=== PATIENT | female | born 1985 | race Two or more races ===

== ENCOUNTER 2020-07-01 16:50 | Inpatient (IN) | payer SELFPAY ==
[~2020-07-01] VITALS: Ht 162.6 cm; Wt 66.0 kg
[2020-07-01 18:57] LABS: BASOPHILS % 0.6 % (0.0-2.0); EOSINOPHILS % 0.7 % (0.0-5.0); HEMATOCRIT. 22.9 % (36.0-48.0); HEMOGLOBIN. 8.1 g/dL (12.0-16.0); LYMPHOCYTES % 22.9 % (20.0-50.0); MEAN CORPUSCULAR HEMOGLOBIN 29.7 pg (28.0-32.0); MEAN CORPUSCULAR VOLUME 84.1 fL (81.0-99.0); MEAN PLATELET VOLUME 8.9 fl (7.4-10.4); MONOCYTES % 4.9 % (2.0-8.0); NEUTROPHILS % 70.9 % (40.0-76.0); PLATELET 249 x1000/uL (130-400); RED BLOOD CELL COUNT 2.72 mill/uL (4.2-5.4); RED CELL DISTRIBUTION WIDTH 19.4 % (11.6-14.6)
[2020-07-01 19:13] LABS: CHLORIDE 111 mEq/L (98-107)
[2020-07-01 19:17] LABS: ETHANOL BLOOD < 10 mg/dL
[2020-07-01 19:39] LABS: HCG SCREEN NEGATIVE
[2020-07-01] MEDS ORDERED: LORAZEPAM 2MG/ML CPJ IM ONE (20:45)
[2020-07-01] MEDS ORDERED: HALOPERIDOL LACTATE 5MG/ML VIAL IM ONE (20:45)
[2020-07-01 21:57] LABS: CLARITY URINE CLEAR (CLEAR); COLOR URINE DARK YELLOW (YELLOW); KETONES URINE NEGATIVE (NEGATIVE); LEUKOCYTE ESTERASE URINE 1+ (NEGATIVE); NITRITE URINE NEGATIVE (NEGATIVE); OCCULT BLOOD URINE NEGATIVE (NEGATIVE); PH URINE 7.5 (4.5-8.0); PROTEIN URINE NEGATIVE (NEGATIVE); SPECIFIC GRAVITY URINE 1.023 (1.005-1.030); UROBILINOGEN URINE >8.0 E.U./dL (0.2-1.0)
[2020-07-01] MEDS ORDERED: NITROFURANTOIN 100MG M/M CAPSULE PO STA (22:20)
[2020-07-01 22:24] LABS: *BARBITURATES SCREEN URINE NEGATIVE (NEGATIVE)
[2020-07-01 22:25] LABS: *BENZODIAZEPINES SCREEN URINE NEGATIVE (NEGATIVE); *COCAINE SCREEN URINE NEGATIVE (NEGATIVE); CANNABINOID URINE SCREEN NEGATIVE (NEGATIVE); METHADONE URINE SCREEN NEGATIVE (NEGATIVE); OPIATES URINE SCREEN NEGATIVE (NEGATIVE); PHENCYCLIDINE URINE SCREEN NEGATIVE (NEGATIVE)
[2020-07-01 22:33] LABS: *AMPHETAMINES SCREEN URINE PRESUMTIVE POSITIVE (NEGATIVE)
[2020-07-02] MEDS ORDERED: NITROFURANTOIN 100MG M/M CAPSULE PO STA (06:54)
[2020-07-02] MEDS ORDERED: SODIUM CHLORIDE 0.9% 1,000 ML IV ONE (23:58)
[2020-07-03] MEDS ORDERED: CEFTRIAXONE 1 G PREMIX 50 ML IV ONE
[2020-07-03] MEDS ORDERED: PIPERACILLIN/TAZ 3.375G PREMIX 50 ML IV ONE (14:30)
[2020-07-03] MEDS ORDERED: SODIUM CHLORIDE 0.9% 1000ML BAG (SEPSIS BOLUS) IV ONE (14:30)
[2020-07-03 16:31] LABS: BASOPHILS % 0.6 % (0.0-2.0); EOSINOPHILS % 1.4 % (0.0-5.0); LYMPHOCYTES % 20.6 % (20.0-50.0); MEAN CORPUSCULAR HEMOGLOBIN 29.8 pg (28.0-32.0); MEAN CORPUSCULAR VOLUME 83.4 fL (81.0-99.0); MEAN PLATELET VOLUME 8.9 fl (7.4-10.4); MONOCYTES % 4.7 % (2.0-8.0); NEUTROPHILS % 72.7 % (40.0-76.0); PLATELET 243 x1000/uL (130-400); RED BLOOD CELL COUNT 2.46 mill/uL (4.2-5.4); RED CELL DISTRIBUTION WIDTH 20.9 % (11.6-14.6)
[2020-07-03 16:32] LABS: CHLORIDE 110 mEq/L (98-107)
[2020-07-03 16:33] LABS: HEMATOCRIT. 20.5 % (36.0-48.0); HEMOGLOBIN. 7.3 g/dL (12.0-16.0)
[2020-07-03] MEDS ORDERED: MAGNESIUM/ALUMINUM HYDROXIDE/SIMETHICONE 30ML UDC PO PRN (17:30)
[2020-07-03] MEDS ORDERED: ACETAMINOPHEN 325MG TABLET PO PRN ×2 (17:30)
[2020-07-03] MEDS ORDERED: NA PHOS,M-B/NA PHOS,DI-BA ENEMA 118ML PR PRN (17:30)
[2020-07-03] MEDS ORDERED: KETOROLAC 15MG/ML VIAL IV PRN (17:30)
[2020-07-03] MEDS ORDERED: ONDANSETRON HCL 4MG/2ML INJ IV PRN (17:30)
[2020-07-03] MEDS ORDERED: HALOPERIDOL LACTATE 5MG/ML VIAL IM PRN (17:30)
[2020-07-03] MEDS ORDERED: LORAZEPAM 2MG/ML CPJ IV PRN (17:30)
[2020-07-03] MEDS ORDERED: CLONIDINE 0.1MG TABLET PO PRN (17:30)
[2020-07-03] MEDS ORDERED: NITROGLYCERIN 0.4MG TABLET SL SL PRN (17:30)
[2020-07-03 17:33] LABS: HAPTOGLOBIN <31.0 mg/dL (30-200)
[2020-07-03 18:12] LABS: TOTAL IRON BINDING CAPACITY 204 ug/dL (250-450)
[2020-07-03 18:14] LABS: FOLIC ACID (FOLATE) SERUM 7.2 ng/mL (>5.38)
[2020-07-03] MEDS ORDERED: ZOLPIDEM TARTRATE 5MG TABLET PO PRN (21:00)
[2020-07-04] MEDS: SODIUM CHLORIDE 0.9% 1,000 ML IV SCH ×2 (00:41→03:23)
[2020-07-04] MEDS: PANTOPRAZOLE SODIUM 40 MG/VIAL IV SCH ×2 (00:42→09:00)
[2020-07-04] MEDS: ASCORBIC ACID 500 MG TABLET PO SCH ×2 (00:42→09:00)
[2020-07-04 07:30] VITALS: BP 93/48
[2020-07-04 08:11] LABS: EOSINOPHILS % 1.6 % (0.0-5.0); HEMOGLOBIN. 7.3 g/dL (12.0-16.0); LYMPHOCYTES % 25.6 % (20.0-50.0); MEAN CORPUSCULAR HEMOGLOBIN 29.7 pg (28.0-32.0); MEAN CORPUSCULAR VOLUME 84.6 fL (81.0-99.0); MONOCYTES % 5.3 % (2.0-8.0); NEUTROPHILS % 66.5 % (40.0-76.0); PLATELET 253 x1000/uL (130-400); RED BLOOD CELL COUNT 2.45 mill/uL (4.2-5.4); RED CELL DISTRIBUTION WIDTH 21.2 % (11.6-14.6)
[2020-07-04 08:16] LABS: CHLORIDE 111 mEq/L (98-107)
[2020-07-04 08:17] LABS: HEMATOCRIT. 20.7 % (36.0-48.0)
[2020-07-04] MEDS ORDERED: ZINC SULFATE 220 MG ( 50 ) CAPSULE PO SCH (09:00)
== END 2020-07-04 13:51 | disposition home or self-care (01) | DRG 52 ==
LOC: ER 16:50 → MICUSO 07-03 18:11
PROVIDERS: ADMIT Internal Medicine; ATTEND Internal Medicine
DX: G92 Toxic encephalopathy (principal); D64.9 Anemia, unspecified; E44.1 Mild protein-calorie malnutrition; E83.51 Hypocalcemia; F17.210 Nicotine dependence, cigarettes, uncomplicated; F29 Unspecified psychosis not due to a substance or known physiological condition; N92.0 Excessive and frequent menstruation with regular cycle; N93.8 Other specified abnormal uterine and vaginal bleeding; F15.10 Other stimulant abuse, uncomplicated; N39.0 Urinary tract infection, site not specified; Z68.25 Body mass index [BMI] 25.0-25.9, adult
CPT/HCPCS: 36415; 80053; 80305; 80307; 80320; 80329; 81003; 82248; 82607; 82746; 83010; 83540; 83550; 83605; 83615; 84703; 85025; 85044; 86850; 86880; 86900; 93005; 93970; 96372; 99285; C9113; J0696; J1630; J2060; J2543; J7030; G0480

== ENCOUNTER 2021-03-16 14:46 | Emergency (ER) | payer SELFPAY | END 2021-03-16 15:20 | disposition left against medical advice (07) | LOC: ER 14:46 | DX: Z53.21 Procedure and treatment not carried out due to patient leaving prior to being seen by health care provider (principal) ==